=== PATIENT | female | born 1965 | race Caucasian/White ===

== ENCOUNTER → 2017-04-04 | Outpatient (CLI) | payer BC | END | disposition home or self-care (01) | LOC: GMA 14:43 | PROVIDERS: ATTEND Nurse Practitioner Acute Care | DX: E03.9 Hypothyroidism, unspecified (principal) ==

== ENCOUNTER → 2017-11-16 | Outpatient (CLI) | payer BC ==
--- NOTE | 2017-11-16 16:30 | RAD ---
EXAM DESCRIPTION: Fingers,Left CLINICAL HISTORY: PAIN COMPARISON: None. TECHNIQUE: 3 views left second digit FINDINGS: Mild soft tissue swelling is observed. No bone or joint abnormality is detected. No radiopaque foreign body is detected in the soft tissues. IMPRESSION: Soft tissue swelling is observed without fracturing. Electronically signed by: Alvaro Spear MD 11/16/2017 4:29 PM [facility]
--- NOTE | 2017-11-16 16:32 | RAD ---
EXAM DESCRIPTION: Hand,Left 3 Views CLINICAL HISTORY: PAIN COMPARISON: None. 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 Mild soft tissue swelling is observed in the second digit. No fracturing is detected. No radiopaque foreign body is observed in the soft tissues. IMPRESSION: Mild degenerative changes and swelling are observed. No fracturing is detected. Electronically signed by: Alvaro Spear MD 11/16/2017 4:30 PM [facility]
== END | disposition home or self-care (01) ==
LOC: RAD 13:32
PROVIDERS: ATTEND Orthopaedic Surgery
DX: M79.642 Pain in left hand (principal); M79.645 Pain in left finger(s); E34.9 Endocrine disorder, unspecified

== ENCOUNTER → 2017-11-23 | Outpatient (CLI) | payer BC ==
--- NOTE | 2017-11-23 14:40 | RAD ---
EXAM DESCRIPTION: Foot,Right 3 Views CLINICAL HISTORY: 52 years, Female, PAIN COMPARISON: None TECHNIQUE: AP, lateral, and oblique views of the right foot FINDINGS: Right foot appears mildly osteopenic. Mild degenerative changes are present without acute fracture or dislocation. No foreign bodies or bony destructive changes are seen. Minimal calcaneal spurring is evident at the Achilles tendon insertion. IMPRESSION: Osteopenia and mild degenerative changes right. Electronically signed by: Zoltan Saab MD 11/23/2017 2:39 PM [facility]
== END | disposition home or self-care (01) ==
LOC: RAD 09:30
PROVIDERS: ATTEND Orthopaedic Surgery
DX: M85.871 Other specified disorders of bone density and structure, right ankle and foot (principal); M79.671 Pain in right foot